=== PATIENT | female | born 1960 | race Caucasian/White ===

== ENCOUNTER → 2022-03-09 12:11 | Outpatient (CLI) | payer OTHER, SELFPAY ==
--- NOTE | ~2022-03-09 | DEXA_ITS ---
Bone Density Report Name: MIA NEFF Age: 61 Sex: Female Ethnicity: White Date of : 1960 Indication: postmenopausal; screening for osteoporosis; Referring Provider: VAHE, AIDEE Faustin Study: Bone densitometry was performed. Exam Date: March 09, 2022 Accession number: [id number] Bone Density: Region BMD T-score Z-score Classification AP Spine (L1-L4) 0.935 -1.0 0.5 Normal Femoral Neck (Left) 0.618 -2.1 -0.7 Osteopenia Total Hip (Left) 0.745 -1.6 -0.6 Osteopenia Femoral Neck (Right) 0.578 -2.4 -1.1 Osteopenia Total Hip (Right) 0.690 -2.1 -1.1 Osteopenia Total Hip Mean 0.718 -1.9 -0.9 Osteopenia World Health Organization criteria for BMD impression classify patients as: Normal (T-score at or above -1.0), Osteopenia (T-score between -1.0 and -2.5), or Osteoporosis (T-score at or below -2.5). 10-year Fracture Risk(1): Major Osteoporotic Fracture 11% Hip Fracture 1.9% Reported Risk Factors: [place] (), Neck BMD=0.578, BMI=24.1 (1) FRAX(R) Version 3.08. Fracture probability calculated for an untreated patient. Fracture probability may be lower if the patient has received treatment. Clinical Information Provided by Patient: Has used the following medications: Vitamin D, MULTI VITAMIN Patient maximum height was 63 Menopause Age: 52 Does not regularly consume dairy products Drinks caffeinated beverages Onset of menses at age 13 Number of children 3 Impression: The patient has low bone mass, based on the Right Femoral Neck T-score. The patient has an estimated ten-year risk of hip fracture of 1.9% and an estimated ten-year risk of major fracture of 11%, based on the WHO FRAX algorithm. Discussion: BONE DENSITY IS LOW AT ONE OR MORE SKELETAL SITES. This patient's lowest T-score is low at one or more skeletal sites. It meets the World Health Organization's (WHO) criteria for ?low bone mass? (T-score between -1.0 and -2.5). The patient's 10-year risk of fracture as calculated by FRAX is less than the threshold where pharmacological therapy is recommended by the National Osteoporosis Foundation (NOF). However, all treatment decisions require clinical judgment and consideration of individual patient factors, including patient preferences, comorbidities, previous drug use, risk factors not captured in the FRAX model (e.g., frailty, falls, vitamin D deficiency, increased bone turnover, interval significant decline in bone density) and possible under or overestimation of fracture risk by FRAX. The patient should follow a healthful lifestyle (good nutrition with adequate calcium and vitamin D, and appropriate weight-bearing exercise). Follow-Up: Consider repeating this study in 2 to 3 years to reassess this patient's status, or sooner if there is some new clinical indication. Reported by
--- NOTE | ~2022-03-09 | MM_ITS ---
EXAMINATION: MM screening ting BI w tia HISTORY: Screening TECHNIQUE: Craniocaudal and mediolateral oblique 3-D tomosynthesis images were obtained and synthetic 2-D images were generated. CAD analysis was submitted and interpreted. COMPARISON: Comparison to multiple prior studies sequentially, with oldest reviewed study dated 07/26. BREAST PARENCHYMAL COMPOSITION: Breast composed of scattered areas of fibroglandular density FINDINGS: There is no evidence of suspicious mass, calcification, or architectural distortion to sugg est malignancy in either breast. There has been no suspicious interval change. IMPRESSION: 1. No mammographic evidence of malignancy. 2. Recommend routine screening mammography in one year. BI-RADS Category 1: Negative Reviewed, dictated and finalized at location A. TRUCTION DRILLER
== END ==
PROVIDERS: PCP Hospitalist; Visit Provider Nurse Practitioner
DX: Z12.31 Encounter for screening mammogram for malignant neoplasm of breast (principal); Z13.820 Encounter for screening for osteoporosis; Z78.0 Asymptomatic menopausal state; M85.852 Other specified disorders of bone density and structure, left thigh; M85.851 Other specified disorders of bone density and structure, right thigh
CPT/HCPCS: 77063; 77067; 77080

== ENCOUNTER 2023-06-14 14:44 | Outpatient (CLI) | payer OTHER, SELFPAY ==
--- NOTE | ~2023-06-14 | MM_ITS ---
EXAMINATION: MM screening ting BI w tia HISTORY: Screening mammogram TECHNIQUE: Craniocaudal and mediolateral oblique 3-D tomosynthesis images were obtained and synthetic 2-D images were generated. CAD analysis was submitted and interpreted. COMPARISON: September 07, 2022, 12/17/2014 bilateral screening mammogram examinations BREAST PARENCHYMAL COMPOSITION: There are scattered areas of fibroglandular density. FINDINGS: There is no evidence of suspicious mass, calcification, or architectural distortion to sugg est malignancy in either breast. There has been no suspicious interval change. IMPRESSION: 1. No mammographic evidence of malignancy. 2. Recommend routine screening mammography in one year. BI-RADS Category 1: Negative Reviewed, dictated and finalized at location B.
== END 2023-06-14 14:45 ==
LOC: MICIMG 14:45
PROVIDERS: PCP Nurse Practitioner; Visit Provider Nurse Practitioner
DX: Z12.31 Encounter for screening mammogram for malignant neoplasm of breast (principal)
CPT/HCPCS: 77063; 77067

== ENCOUNTER 2024-10-04 12:48 | Outpatient (CLI) | payer OTHER, SELFPAY ==
--- OUTSIDE RECORDS SUMMARY | 2006-03-04 07:59 | XMS_ITS | Continuity of Care Document ---
Author Organization [facility] Address [address] [facility] [address] [place] [address] Phone Care Team Providers Care Food General Manager Name Role Phone Saeed OD, Lawrence Unavailable Unavailable Procedures Procedure Date CL Replacement - Vistakon Disp W/BW Soft Tax - Medical No Charge Contact Lens Check No Charge Contact Lens Check Eye Exam & Treatment Advance Directives Directive Yes / No Effective Date File Name No Information Encounters Encounter Description Practice Location Reason(s) For Visit Diagnoses Date Provider Providers Copied on Encounter [facility], [address] [place] [address] [address], [place], [place], [id number], [place] tel:[phone] [facility] No Information 5-200 7 Saeed OD Lawrence. [address] , [address], [place], [place], [facility], . tel:[phone] [facility], [address], [place], [place], [id number], [place] tel:[phone] [facility] No Information 8-200 7 Saeed OD Lawrence. [address] , [address], [place], [place], [facility], . tel:[phone] [facility], [address], [place], [place], [id number], [place] tel:[phone] [facility] No Information 1-200 7 Saeed OD Lawrence. [address] , [address], [place], [address], [place]. tel:[phone] [facility], [address], [place], [place], [id number], [place] tel:[phone] [facility] No Information 200 7 Saeed OD Lawrence. [address] , [address], [place], [address], [place]. tel:[phone] Family History Family Member Type Diagnosis Age At Onset No Information Payers Payer name Insurance type Covered constitution party ID Authoriza tion(s) No Information Social History Type Description Quantity Date Captured Comments Sex Female Smoking Status No Information Chief Complaint And Reason For Visit No Information Reason For Referral Reason For Referral No Information History Of Present Illness Encounter Date Complaint History Of Prese nt Illness No Information Functional Status Date Functional Assessmen t No Information Instructions Date Instruction Additional Infor mation No Information Assessments Type Assessment Date No Information Patient Care Teams Name Effective Dates (start - stop) Status Members No Information
--- OUTSIDE RECORDS SUMMARY | 2024-10-04 12:59 | XMS_ITS | Encounter Summary ---
Author Organization 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 us Historical Provider Final Res ult documented in this encounter Visit Diagnoses Not on filedocumented in this encounter Additional Health Concerns Infection Onset Date Last Indicated Resolved Time Exposure, COVID-19 Comment:Added automatically based on COVID19 lab answers indicating exposure risk 10/09/2019 10/09/2019 10/24/2019 3:05 AM C DT COVID: Suspected 06/04/2021 06/04/2021 06/04/2021 8:50 AM CDT COVID: Suspected 06/04/2021 06/04/2021 06/05/2021 3:05 AM CDT COVID: Suspected 06/04/2021 06/04/2021 06/05/2021 5:05 AM CDT documented as of this encounter Care Teams Repairer And Checker Relationship Specialty Start Date End Date Johanna Hayden MD PCP - General Family Medicine 10/07/18 documented as of this encounter
--- OUTSIDE RECORDS SUMMARY | 2024-10-04 12:59 | XMS_ITS | Clinical Summary ---
Author Organization [facility] Address [address] [place] [id number] Care Team Providers Care Sound Equipment Mechanic Name Role Phone Johanna Hayden MD Primary Care Pro vider Allergies Active Allergy Reactions Criticality Noted Date Comments Penicillin Rash Medium 10/07/2018 Rash, itching Medications cholecalciferol (VITAMIN D-3) 2000 unit capsule Take 1 capsule by mouth daily Active uhgvrqes-mvd-FZ -lycopen-lutein 0.4 mg-300 mcg- 250 mcg tablet Take 1 tablet by mouth daily Active L. gasseri-B. bifidum-B longum (Probiotic Colon Support) 1.5 billion cell capsule 12/13/2017 Active lutein-zeaxanth in 20 mg- 1,000 mcg capsule Take 1 tablet by mouth daily Active krill oil 500 mg capsule Take by mouth Active YYLXCKB-PWTC-ZR XIU-IDUK-YLXWMH ORAL Take by mouth Active glucosamine HCl 1,500 mg tablet Take by mouth Active Active Problems Problem Noted Date Diagnosed Date Annual physical exam 10/07/2018 Assessment & Plan (12/13/2020 1:55 PM CDT): Mammo ordered Colonoscopy 2018 PAP 2018 within normal limits, next due 2023 BP wnl PHQ Screening PHQ-2 Total Score (If total score is 3 or more points, staff should administer the PHQ-9): 0 Body mass index is 23.55 kg/m . Discussed diet and exercise Hep C screening: negative Discussed skin cancer prevention and screening: sees derm Tdap today, otherwise vaccines UTD Declines labs today, previously normal Assessment & Plan (12/05/2019 6:59 AM CDT): Former smoker, intermittent use, quit >20y ago Alcohol use: occasional Mammo ordered Colonoscopy 2018, request records from [facility] PAP 2018 within normal limits, next due 2023 Sexual transmitted infection testing: declines BP wnl PHQ Screening PHQ-2 Total Score (If total score is 3 or more points, staff should administer the PHQ-9): 0 Body mass index is 24.48 kg/m . Discussed diet and exercise Feels safe at home Hep C screening: negative Discussed skin cancer prevention and screening Flu, Tdap & shingles vaccines UTD Check labs Assessment & Plan (10/07/2018 9:18 AM CDT): Former smoker, quit >20y ago Alcohol use: occasional Mammo ordered Due for colonoscopy, planning to schedule at [facility] PAP today Sexual transmitted infection testing: declines BP wnl PHQ Screening PHQ-2 Total Score (If total score is 3 or more points, staff should administer the PHQ-9): 0 PHQ-9 Total Score: 0 Body mass index is 24.14 kg/m . Discussed diet and exercise Feels safe at home Due for hep C screening Discussed skin cancer prevention and screening Tdap & shingles vaccines UTD Return for flu vaccine Immunizations Immunization Administration Dates Next Due Flucelvax Influenza Quad 11/16/2016 Influenza, Quadrivalent, Spl it, Intramuscular 11/30/2014 Influenza, Quadrivalent, Spl it, Preservative Free, Intramuscular 11/26/2021,11/07/2020,10/17/2019,10/31 Influenza, Trivalent, IM (MDV) 11/28/2015 Influenza, Trivalent, Preser vative Free, Intramuscular 11/17/2016 Influenza, Unspecified 11/06/2020 Moderna SARS-CoV-2 Monovalen t Vaccination (12+ YRS) 05/06/2020,04/08/2020 TD Preservative Free 11/10/2013 Tdap 12/13/2020,11/10/2013 ZOSTER LIVE 11/16/2016 ZOSTER Recombinant 12/18/2017,12/17/2017, 018 Surgical History Surgery Date Site/Laterality Comments STAPEDECTOMY Medical History Medical History Date Comments Vitamin D deficiency HL (hearing loss) Family History Medical History Relation Name Comments Hearing loss Father's Sister Meghan Nunez Heart disease Mother Dilma Nunez Breast cancer Mother's Sister Relation Name Status Comments Father's Sister Meghan Nunez Mother Dilma Nunez Mother's Sister Social History Tobacco Use Types Packs/Day Years Used Date Smoking Tobacco: Former Smokeless Tobacco: Never Comments:irregularly in HS Alcohol Use Standard Drinks/Week Comments Not Currently 0 (1 standard drink = 0.6 oz pur e alcohol) occasional AUDIT-C Answer Date Recorded Frequency of Alcohol Consumption Monthly or less 10/07/2018 Average Number of Drinks 1 or 2 019 Frequency of Binge Drinking Never 09/10 PHQ-2 Answer Date Recorded PHQ-2 Total Score (If total score is 3 or more points, staff should administer the PHQ-9) 0 03/03/2022 Personal Safety Answer Date Recorded Getting School Help Needed Not on file 02/06 Comments No Sex and Gender Information Value Date Recorded Sex Assigned at Not on file 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 Gender Identity Female 12/01/2019 2:21 PM CDT Sexual Orientation Not on file Obstetrics History Para Term AB IAB SAB Ectopic Multiple Livin g Live Births 3 3 3 Date Outcome GA Total Labor Labor/2nd/3rd Weight Sex Type Anes PTL Mouna A1 A5 Name Clin Term Term Term Last Filed Vital Signs Vital Sign Reading Time Taken Comments Blood Pressure 118/76 03/03/2022 8:21 AM ACCIDENT REPORT CLERK Pulse 64 03/03/2022 8:21 AM ACCIDENT REPORT CLERK Temperature 36.4 C (97.6 F) 03/03/2022 8:21 AM ACCIDENT REPORT CLERK Respiratory Rate 18 03/03/2022 8:21 AM ACCIDENT REPORT CLERK Oxygen Saturation 99% 03/03/2022 8:21 AM ACCIDENT REPORT CLERK Inhaled Oxygen Concentration - - Weight 61.1 kg (134 lb 11.2 oz) 03/03/2022 8:21 AM ACCIDENT REPORT CLERK Height 157 cm (5' 1.81) 03/03/2022 8:21 AM ACCIDENT REPORT CLERK Body Mass Index 24.79 03/03/2022 8:21 AM ACCIDENT REPORT CLERK Plan of Treatment Health Maintenance Due Date Last Done Comments Hepatitis B Screening 1978 Cervical Cancer Screening 10/08/20192018, 10/07/2018, 10/07/2018 Regular Well Visit/Exam 18-64 12/13/2021 12/13/2020, 12/04/2019, 10/07/2018 Breast Cancer Screening-Mammogram 04/10/2022 04/10/2021, 02/26/2020, 10/25/2018, Additional history exists Depression Screening 03/03/2023 03/03/2022, 12/13/2020, 12/04/2019, Additional history exists Covid-19 Vaccine ( season) 2023 01/12/2021, 05/06/2020, 04/08/2020 Influenza Vaccine (#1) 2024 , 11/07/2020, 11/06/2020, Additional history exists Colon Cancer Screening-Colonoscopy 10/21/2028 10/21/2018 DTaP/Tdap/Td Vaccine (3 - Td or Tdap) 12/13/2030 12/13/2020, 11/10/2013, 11/10/2013 Zoster Vaccine Completed 12/18/2017, 1110/2017, 06/29/2017, Additional history exists Hepatitis C Screening Completed 10/07/2018 Colon Cancer Screening-CT Colonography Discontinued 10/21/2018 Colon Cancer Screening-DNA Stool Discontinued 10/21/2018 Colon Cancer Screening-FIT Discontinued 10/21/2018 Colon Cancer Screening-Sigmoidoscopy Discontinued 10/21/2018 Pneumococcal vaccine <65 Aged Out No longer eligible based on patient's age to complete this topic Procedures Procedure Name Priority Date/Time Associated Diagnosis Comments SCREENING MAMMOGRAM BILATERAL W [place] Schedule Routine, Read Routine (OP Routine) 04/10/2021 1:42 PM ACCIDENT REPORT CLERK Encounter for screening mammogram for malignant neoplasm of breast COLONOSCOPY Routine 10/21/2018 HEPATITIS C ANTIBODY Routine 10/07/2018 9:55 AM CDT Encounter for hepatitis C screening test for low risk patient THINPREP PAP WITH HPV Routine 10/07/2018 9:37 AM CDT Encounter for well woman exam with routine gynecological exam from Last 3 Months or Most Recently Relevant to Health Maintenance Results * Screening Mammogram Bilateral [place] (04/10/2021 1:42 PM ACCIDENT REPORT CLERK) Anatomical Region Laterality Modality Breast Bilateral Mammography Impressions 04/10/2021 2:09 PM ACCIDENT REPORT CLERK BI-RADS ATLAS category (overall): 1 - Negative There is no mammographic evidence of malignancy. A 1 year screening mammogram is recommended. The patient has been or will be contacted. We recommend annual screening mammography for women at average risk of breast cancer beginning at age 40, based on guidelines of the [employer] (ACR Practice Parameter for the Performance of Screening and Diagnostic Mammography) and [employer]. For women with and elevated risk of breast cancer, please refer to the ACR Practice Parameter for specific screening recommendations. The patient will be entered into a reminder system with a target due date of 1 year for her next screening exam. Narrative 04/10/2021 2:09 PM ACCIDENT REPORT CLERK Screening Mammogram Bilateral W [place]: 04/10/21 The study was acquired using full field digital technology and interpreted from soft copy. 2D digital mammographic views, as well as 3D digital tomosynthesis were performed in the CC and MLO projections. CLINICAL: Encounter for screening mammogram for malignant neoplasm of breast Medical history includes developmental delay. History of breast cancer in Mother's Sister. COMPARISONS: 02/26/2020 Screening Mammogram Bilateral W [place] 10/25/2018 Screening Mammogram Bilateral W [place] 03/01/2017 Screening Mammogram Bilateral [place] BREAST TISSUE: The breasts have scattered areas of fibroglandular density. FINDINGS: No suspicious masses, suspicious calcifications, or other suspicious findings are seen within either breast. There has been no suspicious change. Johanna Hayden MD IMG MAMMO PROCEDU RES Final Result * Colonoscopy (10/21/2018) Anatomical Region Laterality Modality Other 10/21/2018 Historical Provider ENDOSCOPY PROCEDURES Emmy l Result * Hepatitis C antibody (10/07/2018 9:55 AM CDT) Hep C Ab NONREACT NONREACTIVE [facility] Comment: Siemens CentaurXP using SHENA (chemiluminescent immunoassay) technology. NONREACTIVE: Antibodies to Hepatitis C not detected. This does not exclude early acute Hepatitis C infection, possibility of exposure to Hepatitis C, antibodies below detection limit, or to lack of antibody reactivity to the antigen used in this assay. EQUIVOCAL: Antibodies to Hepatitis C may or may not be present. Sample to be confirmed by real-time PCR method. REACTIVE: Antibodies to Hepatitis C detected.Sample to be confirmed by real-time PCR method. Blood specimen (specimen) 10/07/2018 9:55 AM CDT 10/07/2018 10:26 AM CDT Narrative Resulting Agency Comment CLI us Johanna Hayden MD LAB MICROBIOLOGY - GENERAL ORDERABLES Final Result [id number] [place] [address], [facility] [phone] * ThinPrep Pap with HPV (10/07/2018 9:37 AM CDT) 10/07/2018 9:37 AM CDT 10/11/2018 11:[address] [facility] - 10/14/2018 4:55 PM CDT [facility] Department of Pathology [address] [place] [address] Final Report with Addendum Patient Name: BROOKLYNN BHATT Address: [address] [place] [address] [place] [address] Gender: F : 1960 (Age: 57) Service: Laboratory Location: Lab [facility] #: [id number] Patient Type: Ref Lab Taken: 10/07/2018 Received: 10/11/2018 Accessioned:: 10/12/2018 Reported: 10/14/2018 Physician(s): Johanna Hayden M.D. [facility] Diagnosis: Source of Specimen: SCREENING IMAGED PAP w/ HPV Specimen Adequacy: - Specimen satisfactory for interpretation; indeterminate endocervical component due to marked atrophy General Category: - Negative for intraepithelial lesion or malignancy Interpretation/Results: - Atypia associated with atrophy Intradepartmental consultation: This case was also reviewed by Dr. Dias, who concurs with the above findings. JAMES Lara (ASCP) Carlos Perez MD Report Electronically Reviewed and Signed Out By Carlos Perez MD 10/14/2018 16:55:41 Addenda: HPV RNA Test Interpretation NEGATIVE for types 16, 18, 31, 33, 35, 39, 45, 51, 52, 56, 58, 59, 66 and 68. Test performed utilizing Gen-Probe Aptima assay. JAMES Dockery(ASC) Report Electronically Reviewed and Signed Out By JAMES Dockery([facility]) 10/13/2018 12:30:59 Specimen(s) Received: A: SCREENING IMAGED PAP w/ HPV Clinical History: Last Menstrual Period: N/A Menstrual History: The Pap test is a screening test used to aid in the detection of cervical cancer and its precursors. It should not be the sole means by which malignant and premalignant lesions are diagnosed. Both false negative and false positive results may occur. It also has poor sensitivity for the detection of endometrial lesions and should not be used to evaluate suspected endometrial abnormalities. For these reasons it is most important to obtain Pap tests at regular intervals. The performance characteristics of some immunohistochemical stains, fluorescence in-situ hybridization tests and immunophenotyping by flow cytometry cited in this report (if any) were determined by the Surgical Pathology Department at [facility] as part of an ongoing clinical quality rn program and in compliance with federally mandated regulations drawn from the Clinical Laboratory Improvement Act of 1988 (CLIA '88). Some of these tests rely on the use of analyte specific reagents and are subject to specific labeling requirements by the US Food and Drug Administration. Such diagnostic tests may only be performed in a facility that is certified by the Department of Health and Human Services as a high complexity laboratory under CLIA '88. The FDA has determined that such clearance or approval is not necessary. This test is used for clinical purposes. It should not be regarded as investigational or for research. Nevertheless, federal rules concerning the medical use of analyte specific reagents require that the following disclaimer be attached to the report: This test was developed and its performance characteristics determined by the Surgical Pathology Department [facility]. It has not been cleared or approved by the U. S. Food and Drug Administration. Johanna Hayden MD LAB CYTOLOGY CHACHAFreddie DEVORAH Final Result [facility] [address] [place] [address], [facility] [phone] from Last 3 Months or Most Recently Relevant to Health Maintenance Insurance [employer] HMO [employer] H[employer] Care Teams Sound Equipment Mechanic Relationship Specialty Start Date End Date Johanna Hayden MD [phone] (work) PCP - General Family Medicine 10/07/18
== END 2024-10-04 12:49 | disposition home or self-care (01) ==
LOC: ANHAUDIO 12:49
PROVIDERS: PCP Nurse Practitioner; Visit Provider Otolaryngology
DX: H80.23 Cochlear otosclerosis, bilateral (principal); Z97.4 Presence of external hearing-aid; J34.3 Hypertrophy of nasal turbinates; H69.90 Unspecified Eustachian tube disorder, unspecified ear
CPT/HCPCS: 99199

== ENCOUNTER 2025-01-26 12:02 | Outpatient (CLI) | payer OTHER, SELFPAY ==
--- NOTE | ~2025-01-26 | MM_ITS ---
EXAMINATION: MM screening [facility] BI w tia HISTORY: Screening TECHNIQUE: Craniocaudal and mediolateral oblique 3-D tomosynthesis images were obtained and synthetic 2-D images were generated. CAD analysis was submitted and interpreted. COMPARISON: Comparison to multiple prior studies sequentially, with oldest reviewed study dated 03/09/2022. BREAST PARENCHYMAL COMPOSITION: Not dense: There are scattered areas of fibroglandular density. FINDINGS: There is no evidence of suspicious mass, calcification, or architectural distortion to suggest malignancy in either breast. There has been no suspicious interval change. IMPRESSION: 1. No mammographic evidence of malignancy. 2. Recommend routine screening mammography in one year. BI-RADS Category 1: Negative Reviewed, dictated and finalized at location O. ER HAND
--- NOTE | ~2025-01-26 | DEXA_ITS ---
Bone Density Report Name: MIA NEFF Age: 64 Sex: Female Ethnicity: White Date of : 1960 Indication: osteopenia; Referring Provider: MOOSE, SANJAY Prater Study: Bone densitometry was performed. Exam Date: January 26, 2025 Accession number: [id number] Bone Density: Region BMD T-score Z-score Classification AP Spine(L1-L4) 0.921 -1.1 0.6 Osteopenia Femoral Neck (Left) 0.571 -2.5 -1.0 Osteoporosis Total Hip (Left) 0.749 -1.6 -0.4 Osteopenia Femoral Neck (Right) 0.616 -2.1 -0.6 Osteopenia Total Hip (Right) 0.717 -1.8 -0.7 Osteopenia Total Hip Mean 0.733 -1.7 -0.6 Osteopenia World Health Organization criteria for BMD impression classify patients as: Normal (T-score at or above -1.0), Osteopenia (T-score between -1.0 and -2.5), or Osteoporosis (T-score at or below -2.5). 10-year Fracture Risk: FRAX not reported because: Some T-score for Spine Total or Hip Total or Femoral Neck at or below -2.5 Previous Exams: -- Region Exam Age BMD T-score BMD Change BMD Change Date g/cm2 vs Baseline vs Previous -- AP Spine (L1-L4) 01/26/2025 64 0.921 -1.1 -1.5% -1.5% 03/09/2022 61 0.935 -1.0 Total Hip(Left) 01/26/2025 64 0.749 -1.6 0.6% 0.6% 03/09/2022 61 0.745 -1.6 Total Hip(Right) 01/26/2025 64 0.717 -1.8 3.9% 3.9% 03/09/2022 61 0.690 -2.1 -- *Denotes significance at 95% confidence level, LSC for AP Spine = 0.022 g/cm2, LSC for Total Hip = 0.027 g/cm2 Clinical Information Provided by Patient: Has used the following medications: Vitamin D Patient maximum height was 62 Menopause Age: 52 Drinks caffeinated beverages Onset of menses at age 13 Number of children 3 Impression: The patient has osteoporosis, based on the Left Femoral Neck T-score. No significant bone loss was observed. Discussion: INCREASED RISK OF FRACTURE. BONE DENSITY IS UNDESIRABLY LOW AT ONE OR MORE SKELETAL SITES, CONSISTENT WITH POSTMENOPAUSAL OSTEOPOROSIS. This patient's lowest T-score meets the World Health Organization's (WHO) criteria for osteoporosis at one or more sites (T-score -2.5 or below). In untreated patients, the risk of osteoporotic fracture increases approximately two-fold for each 1.0 SD decrease in T-score. Low bone density is not the only risk factor for fracture; also consider factors such as patient's age, frailty or poor health, risk of falling, risk of injury, previous osteoporotic fracture, family history of osteoporosis, cigarette smoking, low body weight, etc. Not everyone with low bone mineral density has osteoporosis; osteomalacia and other metabolic bone disorders should also be considered. Patients who have osteoporosis should be evaluated for specific diseases and conditions (secondary causes) that may cause or contribute to bone loss. The [place] [employer] (AACE) and National Osteoporosis Foundation (NOF) recommend pharmacologic intervention for all postmenopausal women whose T-score is in this range. The patient should follow a healthful lifestyle (good nutrition with adequate calcium and vitamin D, and appropriate weight-bearing exercise). Follow-Up: Consider a repeat BMD and Vertebral Fracture Assessment (VFA) exam in 2 years or sooner if medically necessary, to reassess this patient's status. Reported by: GRICELDA on 01/26/2025 12:47:00 PM. Reviewed, dictated and finalized at location A.
== END 2025-01-26 12:03 | disposition home or self-care (01) ==
PROVIDERS: PCP Nurse Practitioner; Visit Provider Nurse Practitioner
DX: Z12.31 Encounter for screening mammogram for malignant neoplasm of breast (principal); Z78.0 Asymptomatic menopausal state; M85.88 Other specified disorders of bone density and structure, other site; M81.0 Age-related osteoporosis without current pathological fracture; M85.852 Other specified disorders of bone density and structure, left thigh; M85.851 Other specified disorders of bone density and structure, right thigh
CPT/HCPCS: 77063; 77067; 77080